=== PATIENT | male | born 1970 | race Caucasian/White ===

== ENCOUNTER 2023-12-01 12:38 | Outpatient (CLI) | payer OTHER | END 2023-12-01 23:59 | disposition home or self-care (01) | LOC: RAD 12:38 | PROVIDERS: ATTEND Chiropractor | DX: M06.9 Rheumatoid arthritis, unspecified (principal) | CPT/HCPCS: 36415; 86431 ==

== ENCOUNTER 2024-02-20 09:49 | Outpatient (CLI) | payer OTHER | END 2024-02-20 23:59 | disposition home or self-care (01) | LOC: RAD 09:49 | PROVIDERS: ATTEND Chiropractor | DX: M25.9 Joint disorder, unspecified (principal) | CPT/HCPCS: 72170; 73030; 73080; 73130; 73610; 73630 ==